=== PATIENT | male | born 1935 | race Caucasian/White ===

== ENCOUNTER 2018-01-11 07:11 | Inpatient (IN) | payer OTHER ==
[~2018-01-11] VITALS: Ht 175.3 cm; Wt 72.6 kg
--- NOTE | ~2018-01-11 | HC ---
[facility] [place] [address] CONSULTATION Name: NICOLE MIKE Room #: 421-P [facility] IN .R.#: [id number] Admission: 01/11/18 Attend Phys: Michel Schaeffer Discharge: 01/15/18 Date of : 31 Report #: [id number] THIS REPORT FOR: //name// CC: Michel Raglanden Jl DATE OF SERVICE: 01/11/2018 HISTORY OF PRESENT ILLNESS: This is an 82-year-old male patient who was evaluated by me for any neurological etiology for the patient's nausea, vomiting and dizziness. The history is not completely clear, but it would appear that this patient woke up with these symptoms. I talked to the patient's and other members of the family and after talking to them for some time, it is reasonably certain that he woke up with this symptom. His symptoms are some speech slurring and a lot of dizziness. His memory has not been affected. His symptoms are severe and he is keeping his eyes closed. He never had this kind of symptoms before. REVIEW OF SYSTEMS: He was recently admitted with a GI bleed. He used to be on Xarelto because of atrial fibrillation, but that was discontinued because of the GI bleed. The patient does have a prior coronary artery disease and he had a stent. He does have a prior history of atrial fibrillation. He had a history of shortness of breath in the past, but presently does not appear to be having much shortness of breath. I carried out the 14-point review of system and this was his relevant 14-point review of system. PAST MEDICAL HISTORY: Positive for coronary artery disease. FAMILY HISTORY: Negative for early age stroke. SOCIAL HISTORY: By record, he used to drink about a drink or 2 a day. He has multiple members here of the family and I talked to them. PHYSICAL EXAMINATION: NEUROLOGIC: Indicates he is alert. He is responsive. He is oriented. He is able to follow simple and complex command. He keeps his eyes closed. His speech to me, it looks it was preserved. His cranial nerve examination 212 was attempted. It would appear unremarkable. His neuromuscular examination is mostly positive for problem with the left shoulder, which is many decades old. Otherwise, strength, sensation, reflexes and tones are symmetrical. CARDIAC: Indicates that he has a history of atrial fibrillation. RESPIRATORY: He does not appear to be in any respiratory difficulty or any rhonchi on either side. VITAL SIGNS: His blood pressure is 140/74, respiration is 16, pulse is 65, temperature is 96.1. GENERAL: He is a very well-developed individual who does not have any [address] [address] CONSULTATION Name: NICOLE MIKE Room #: 421-P [facility] M.R.#: [id number] Admission: 01/11/18 Attend Phys: Michel Schaeffer Discharge: 01/15/18 Date of : 31 Report #: [id number] dysmorphic features of eyes, ears and face. His vision and hearing looks adequate. EXTREMITIES: His pulses are difficult to feel. He has no edema, cyanosis or jaundice. LABORATORY DATA: Indicates a hemoglobin of only 8.6, which is low. His GFR is only 41. His glucose is 218. His LDL is 61. He did have a CT scan of the head, which does not appear to be showing any acute changes. IMPRESSION: I had a long talk with the patient and the family. I discussed with them that neurologically, the main thing we need to exclude is the possibility of posterior fossa cerebrovascular accident. If it is, it will be in the cerebellar area. His CT is unremarkable, but that does not exclude the possibility of cerebrovascular accident. Unfortunately, the treatment option will be limited in this patient. He is obviously not a TPA candidate because of symptom onset is not clear and he had a gastrointestinal bleed recently. His symptom duration is more than 4-1/2 hours and 3 hours and with his age of more than 78, he is outside the window for that. Thrombectomy now can be done for up to 48 hours, but only in a selected individual. So I think it will be desirable to proceed with an MRI in this patient. I discussed with the family that because of his nausea, vomiting, the possibility of aspiration is there, especially in the machine. I also talked to them that he has metal in his teeth and that may produce a lot of artifact and MRI people need to decide if they want to proceed with that or not. The family understood the risks with MRI. I think this patient is competent to make the decision. He also listen to the discussion and they all agree to proceed with this and we will schedule that and if MRI shows a stroke, then we need to proceed accordingly. If that MRI is negative, then we need to be worked up for any alternate etiology for the patient's symptom. Stroke need to be excluded especially because his anticoagulation has to be discontinued recently with a gastrointestinal bleed. <ELECTRONICALLY SIGNED> By: Manuel Devi MD 01/15/182150 57 57 Manuel Devi MD /nt
--- NOTE | ~2018-01-11 | EKG ---
[address] [address] ELECTROCARDIOGRAM REPORT Name: NICOLE MIKE [id number] Admission: 01/11/18 Attend Phys: Discharge: Date of : 31 Report #: [id number] THIS REPORT FOR: //name// [facility] ED Test Date: 2018-01-11 Test Time: 07:41:05 Pat Name: NICOLE MIKE Department: Room: Gender: M Public Relations: dahlia : 1935 Requested By: Lazarus Keith Order Number: [id number] MD: Grzegorz Ortiz Measurements Intervals [place] Rate: 65 P: TN: QRS: 62 QRSD: 106 T: 29 QT: 472 QTc: 491 Interpretive Statements Atrial fibrillation Borderline prolonged QT interval Compared to ECG 12/29/2017 12:15:12 T-wave abnormality no longer present Electronically Signed On 01-11-2018 9:17:10 CDT by Grzegorz Ortiz [email or web address] <ELECTRONICALLY SIGNED> By: Grzegorz rOtiz MD 01/11/18 0917 0741 0741 Grzegorz Ortiz MD /EPI
[~2018-01-11 07:11] MED LIST: ANALGESIC325 MG PO; ASPIR 8181 MG PO; BYSTOLIC 5 MG5 MG PO; CENTRUM SILVER1 EAC2 PO; COLACE100 MG PO; DYAZIDE; EXFORGE; IRON325 PO; KRILL OIL500 MG PO; LASIX 20 MG TAB20 MG PO; LIPITOR 20 MG T20 M1 PO; LIPITOR40 MG PO; PANTOPRAZOLE SO40 M1 PO; PROBIOTIC1 EAC1 PO; QUESTRAN PACKET4 GM PO; XARELTO20 MG PO
[2018-01-11 07:14] VITALS: BP 144/70
[2018-01-11 07:52] LABS: ABSOLUTE NEUTROPHILS 4.7 thou/uL (1.4-8.2); BASOPHILS 1.4 % (0.0-2.0); EOSINOPHILS 3.5 % (0.0-3.0); HEMATOCRIT 25.5 % (42.0-52.0); HEMOGLOBIN 8.6 gm/dL (14.0-18.0); LYMPHOCYTES 24.5 % (24.0-44.0); MCH 30.3 pg (26.0-34.0); MCHC 33.9 g/dL (28.0-37.0); MCV 89.4 fL (80.0-100.0); MONOCYTES 10.1 % (1.0-8.0); PLATELET COUNT 297 thou/uL (150-400); POLYS 60.5 % (36.0-66.0); RBC 2.85 mil/uL (4.50-6.00); RDW 16.4 % (10.5-14.5); WBC 7.7 thou/uL (4.0-11.0)
[2018-01-11 08:05] LABS: APTT 21.4 Seconds (24.5-32.8); PROTIME 10.3 Seconds (9.3-11.4)
[2018-01-11 08:06] LABS: ANION GAP 11 mmol/L (7-16); BUN 22 mg/dL (7-18); CALCIUM 8.8 mg/dL (8.5-10.1); CHLORIDE 104 mmol/L (98-107); CO2 21 mmol/L (21-32); CREATININE 1.6 mg/dL (0.7-1.3); GLUCOSE 218 mg/dL (74-106); POTASSIUM 3.6 mmol/L (3.5-5.1); SODIUM 136 mmol/L (136-145)
[2018-01-11 08:14] LABS: ALBUMIN 3.5 g/dL (3.4-5.0); SGOT 23 U/L (15-37); SGPT 22 U/L (30-65); TOTAL BILIRUBIN 0.6 mg/dL (<0.1-1.0); TOTAL PROTEIN 6.2 g/dL (6.4-8.2); TROPONIN-I < 0.04 ng/mL (<0.06)
[2018-01-11 10:05] VITALS: BP 140/74
[2018-01-11 10:25] LABS: URINE BILIRUBIN NEGATIVE (Negative); URINE BLOOD NEGATIVE (Negative); URINE CLARITY CLEAR; URINE COLOR YELLOW; URINE GLUCOSE-RANDOM* TRACE (Negative); URINE KETONES 1+ (Negative); URINE LEUKOCYTES-REFLEX NEGATIVE (Negative); URINE NITRITE-REFLEX NEGATIVE (Negative); URINE PROTEIN (DIPSTICK) NEGATIVE (Negative); URINE SPECIFIC GRAVITY 1.025 (1.005-1.035); URINE UROBILINOGEN 0.2 E.U./dl (0.2-1.0)
[2018-01-11 10:42] VITALS: BP 140/77
[2018-01-11 10:42] LABS: CHOLESTEROL 120 mg/dL (<200); HDL CHOLESTEROL 48 mg/dL (>40); LDL CHOLESTEROL 61 mg/dL (<100); TC:HDL 2.5 Ratio (Not establshd); TRIGLYCERIDE 58 mg/dL (<150); VLDL 12 mg/dL (<40)
[2018-01-11 16:23] VITALS: BP 147/76
[2018-01-11 19:45] VITALS: BP 148/79
[2018-01-12 04:28] LABS: HEMATOCRIT 24.2 % (42.0-52.0); HEMOGLOBIN 7.9 gm/dL (14.0-18.0); MCHC 32.5 g/dL (28.0-37.0); MCV 89.2 fL (80.0-100.0); RBC 2.71 mil/uL (4.50-6.00); RDW 16.1 % (10.5-14.5); WBC 5.9 thou/uL (4.0-11.0)
[2018-01-12 04:47] LABS: ALBUMIN 3.1 g/dL (3.4-5.0); CALCIUM 8.2 mg/dL (8.5-10.1); CREATININE 1.3 mg/dL (0.7-1.3); PHOSPHORUS 3.4 mg/dL (2.5-4.9)
[2018-01-12 04:50] VITALS: BP 127/67
[2018-01-12 07:50] VITALS: BP 133/71
[2018-01-12 11:01] LABS: ABSOLUTE RETIC COUNT 0.076 10^6/uL; OBSERVED RETIC COUNT 2.88 % (0.6-2.6)
[2018-01-12 11:04] LABS: % SATURATION 5 % (20-39); IRON 15 ug/dL (65-175); TIBC 308 ug/dL (250-450)
[2018-01-12 11:32] LABS: TSH 0.503 uIU/mL (0.358-3.740)
[2018-01-12 11:45] VITALS: BP 140/76
[2018-01-12 15:45] VITALS: BP 130/65
[2018-01-12 19:30] VITALS: BP 128/61
[2018-01-13 04:20] VITALS: BP 105/59
[2018-01-13 04:40] VITALS: BP 122/62
[2018-01-13 04:50] LABS: HEMATOCRIT 21.1 % (42.0-52.0); HEMOGLOBIN 7.1 gm/dL (14.0-18.0); MCH 29.4 pg (26.0-34.0); MCHC 33.5 g/dL (28.0-37.0); MCV 87.7 fL (80.0-100.0); RBC 2.4 mil/uL (4.50-6.00); RDW 16.8 % (10.5-14.5); WBC 8.7 thou/uL (4.0-11.0)
[2018-01-13 07:00] VITALS: BP 131/77
[2018-01-13 11:49] VITALS: BP 133/68
[2018-01-13 20:00] VITALS: BP 142/78
[2018-01-14] VITALS (8 sets, daily range): BP systolic 130–170; BP diastolic 67–87
[2018-01-14 04:18] LABS: ABSOLUTE NEUTROPHILS 5.5 thou/uL (1.4-8.2); BASOPHILS 0.8 % (0.0-2.0); EOSINOPHILS 2.8 % (0.0-3.0); HEMATOCRIT 21.2 % (42.0-52.0); LYMPHOCYTES 15.8 % (24.0-44.0); MCH 29.2 pg (26.0-34.0); MCV 88.4 fL (80.0-100.0); MONOCYTES 8.2 % (1.0-8.0); PLATELET COUNT 239 thou/uL (150-400); POLYS 72.4 % (36.0-66.0); RBC 2.39 mil/uL (4.50-6.00); RDW 16.8 % (10.5-14.5); WBC 7.6 thou/uL (4.0-11.0)
[2018-01-14 04:30] LABS: CALCIUM 7.9 mg/dL (8.5-10.1); CREATININE 1.2 mg/dL (0.7-1.3); POTASSIUM 3.7 mmol/L (3.5-5.1)
[2018-01-15 03:30] VITALS: BP 156/84
[2018-01-15 04:16] LABS: ABSOLUTE NEUTROPHILS 4.8 thou/uL (1.4-8.2); BASOPHILS 0.8 % (0.0-2.0); EOSINOPHILS 4.6 % (0.0-3.0); HEMATOCRIT 24.4 % (42.0-52.0); HEMOGLOBIN 8.2 gm/dL (14.0-18.0); LYMPHOCYTES 18.8 % (24.0-44.0); MCH 28.8 pg (26.0-34.0); MCHC 33.6 g/dL (28.0-37.0); MCV 85.6 fL (80.0-100.0); MONOCYTES 8.9 % (1.0-8.0); PLATELET COUNT 237 thou/uL (150-400); POLYS 66.9 % (36.0-66.0); RBC 2.85 mil/uL (4.50-6.00); WBC 7.2 thou/uL (4.0-11.0)
[2018-01-15 04:28] LABS: CALCIUM 8.4 mg/dL (8.5-10.1); CREATININE 1.2 mg/dL (0.7-1.3); POTASSIUM 3.7 mmol/L (3.5-5.1)
[2018-01-15 07:19] VITALS: BP 155/85
[2018-01-15] MEDS ORDERED: XARELTO15 MG PO (16:04)
[2018-01-15] MEDS ORDERED: MIRALAX17 GM PO (16:04)
[2018-01-15] MEDS ORDERED: COLACE100 MG PO (16:04)
[2018-01-15] MEDS ORDERED: VITAMIN B-12500 MCG PO (16:04)
[2018-01-15] MEDS ORDERED: ANTIVERT25 MG PO (16:04)
[2018-01-15] MEDS ORDERED: ASPIR 8181 MG PO (16:04)
[2018-01-15] MEDS ORDERED: IRON325 PO (16:14)
[2018-01-15 16:48] VITALS: BP 155/85
== END 2018-01-15 17:39 | disposition home or self-care (01) | DRG 69 ==
LOC: ER 07:11 → 4E 09:47 → EROBS 09:47 → 3W 10:48 → 4E 01-13 15:06
PROVIDERS: Emergency Medicine; Family Medicine; Hospitalist
PROC: 30233N1 Transfusion of Nonautologous Red Blood Cells into Peripheral Vein, Percutaneous Approach (ICD-10-PCS; principal; 2018-01-14)
DX: G45.9 Transient cerebral ischemic attack, unspecified (principal); N17.0 Acute kidney failure with tubular necrosis; I10 Essential (primary) hypertension; E78.00 Pure hypercholesterolemia, unspecified; I25.10 Atherosclerotic heart disease of native coronary artery without angina pectoris; D50.0 Iron deficiency anemia secondary to blood loss (chronic); K57.90 Diverticulosis of intestine, part unspecified, without perforation or abscess without bleeding; K80.20 Calculus of gallbladder without cholecystitis without obstruction; I48.91 Unspecified atrial fibrillation; Z96.642 Presence of left artificial hip joint; I25.2 Old myocardial infarction; Z95.5 Presence of coronary angioplasty implant and graft; Z87.891 Personal history of nicotine dependence; Z98.42 Cataract extraction status, left eye; Z79.899 Other long term (current) drug therapy; Z88.5 Allergy status to narcotic agent
CPT/HCPCS: 10183; 10879

== ENCOUNTER → 2020-07-28 | Outpatient (CLI) | payer OTHER ==
[~2020-07-28] MED LIST changes: +ANTIVERT25 MG PO; +MIRALAX17 GM PO; +VITAMIN B-12500 MCG PO; +XARELTO15 MG PO
== END ==
LOC: SJCVCIMAG 07:11
PROVIDERS: ATTEND Internal Medicine Cardiovascular Disease
DX: I08.3 Combined rheumatic disorders of mitral, aortic and tricuspid valves (principal); I11.9 Hypertensive heart disease without heart failure; R94.31 Abnormal electrocardiogram [ECG] [EKG]; I48.91 Unspecified atrial fibrillation; E78.00 Pure hypercholesterolemia, unspecified; Z79.899 Other long term (current) drug therapy; Z87.891 Personal history of nicotine dependence

== ENCOUNTER → 2020-09-16 | Outpatient (CLI) | payer OTHER | LOC: RAD 11:44 | PROVIDERS: ATTEND Internal Medicine | DX: J90 Pleural effusion, not elsewhere classified (principal) ==

== ENCOUNTER → 2020-09-20 | Outpatient (CLI) | payer OTHER ==
[2020-09-20 09:27] LABS: ABSOLUTE NEUTROPHILS 11.2 thou/uL (1.4-8.2); BASOPHILS 0.4 % (0.0-2.0); EOSINOPHILS 0.7 % (0.0-3.0); HEMATOCRIT 35.5 % (42.0-52.0); HEMOGLOBIN 11.7 gm/dL (14.0-18.0); LYMPHOCYTES 7.4 % (24.0-44.0); MCH 26.9 pg (26.0-34.0); MCHC 32.8 g/dL (28.0-37.0); MONOCYTES 9.8 % (1.0-8.0); PLATELET COUNT 408 thou/uL (150-400); POLYS 81.7 % (36.0-66.0); RBC 4.33 mil/uL (4.50-6.00); RDW 18.9 % (10.5-14.5); WBC 13.7 thou/uL (4.0-11.0)
[2020-09-20 09:36] LABS: APTT 29.9 Seconds (24.5-32.8); INR 1.1; PROTIME 11.2 Seconds (9.3-11.4)
[2020-09-20 09:51] LABS: CREATININE 1.1 mg/dL (0.7-1.3); POTASSIUM 3.4 mmol/L (3.5-5.1)
[2020-09-20 11:43] LABS: CLARITY CLEAR; COLOR YELLOW; SOURCE CHEST FLUID; TOTAL VOLUME 60 mL
[2020-09-20 12:50] LABS: BF NUCLEATED CELLS 260 /mm3; BF RBC 644 /mm3
[2020-09-20 14:29] LABS: ANISOCYTOSIS 2+
[2020-09-20 14:30] LABS: OVALOCYTES FEW; POLYCHROMASIA OCCASIONAL
[2020-09-20 14:41] LABS: BF MACROPHAGE 74 %; BF NEUTROPHILS 4 %
[2020-09-21 10:37] LABS: SOURCE CHEST
[2020-09-21 12:07] LABS: BODY FLUID ALBUMIN 1.5 g/dL (Not Estab.); BODY FLUID AMYLASE 26 U/L (()); BODY FLUID GLUCOSE 165 mg/dL (()); BODY FLUID LDH 162 IU/L (()); BODY FLUID PROTEIN 2.8 g/dL (())
--- NOTE | 2020-09-22 11:07 | PATH ---
[facility] [place] [address] PATHOLOGY RPT PROCEDURE Name: NICOLE MIKE Room #: REG CATHERINE Monahan.Lyndon.#: [id number] Admission: 09/20/20 Date of : 31 Discharge: Report #: [id number] Path Case #: [id number] Note [facility] Accession Number: [id number] TESTS RESULT FLAG UNITS REF RANGE LAB Clinician Provided Cytology Information No. of containers..01 Other (Miscellaneous) Source: RIGHT PLEURAL FLUID DIAGNOSIS: 02 RIGHT PLEURAL FLUID NEGATIVE FOR MALIGNANT EPITHELIAL CELLS. REACTIVE MESOTHELIAL CELLS ARE PRESENT. THIS INTERPRETATION INCLUDES EVALUATION OF A CELL BLOCK. CHRONIC INFLAMMATION AND MACROPHAGES. Comment: Few enlarged mildly atypical cells are identified in a background of inflammation and macrophages. Properly controlled immunohistochemical stains are performed on formalin fixed cell block. Calretinin and desmin are reactive within the mesothelial cells. CD45 is reactive within the inflammatory cells. CD68 is reactive within the scattered macrophages. BerEP4 is nonreactive. Findings support a reactive process. Pathologist ICD10: 02 J90 Signed out by: 02 Peggy Riojas MD, Pathologist NPI- [id number] Performed by: 01 Marybeth Gruber, Firer Kiln ([facility]) Gross description: 01 10ML, HAZY YELLOW, 1 TP 1 CB /LCS 09/20/2020 1654 Local FLAG LEGEND: L-Low Normal,H-High Normal,LL-Alert Low,HH-Alert High <-Panic Low,>-Panic High,A-Abnormal,AA-Critical Abnormal Performed at: 01 [facility] [address] [facility] [address] [place] [address] Jac Coelho MD, [address] [address] Peggy Riojas MD, Specimen Comment: A courtesy copy of this report has been sent to [phone], [phone] [address] PATHOLOGY RPT PROCEDURE Name: CEENICOLE YASSINE Room #: REG CATHERINE Cotter#: [id number] Admission: 09/20/20 Date of : 31 Discharge: Report #: [id number] Path Case #: [id number] Specimen Comment: [phone] Specimen Comment: Report sent to / DR BAKER Performed at: 01 [facility] [address] [place] [address] [address], [place], [place] [id number] MD Jac Coelho MD Phone: [phone]
== END ==
LOC: ULTRA 08:48
PROVIDERS: ATTEND Internal Medicine
DX: J90 Pleural effusion, not elsewhere classified (principal); R91.8 Other nonspecific abnormal finding of lung field; R59.9 Enlarged lymph nodes, unspecified; Z79.899 Other long term (current) drug therapy; Z98.890 Other specified postprocedural states

== ENCOUNTER → 2020-09-27 | Outpatient (CLI) | payer OTHER | LOC: RAD 12:30 | PROVIDERS: ATTEND Internal Medicine | DX: J90 Pleural effusion, not elsewhere classified (principal) ==

== ENCOUNTER → 2020-10-04 | Outpatient (CLI) | payer OTHER ==
[~2020-10-04] MED LIST changes: +BYSTOLIC10 MG PO; +DILTIAZEM ER180 M2 PO; +HYDROCODON-ACE1 EAC7 PO; +LIPITOR10 MG PO; +PROTONIX40 M2 PO; +VITAMIN B-125000 MCG PO
== END ==
LOC: LAB 12:32
PROVIDERS: ATTEND Pediatrics
DX: Z01.812 Encounter for preprocedural laboratory examination (principal); Z20.822 Contact with and (suspected) exposure to COVID-19

== ENCOUNTER → 2020-10-06 | Outpatient (CLI) | payer OTHER | LOC: CAT 11:04 | PROVIDERS: ATTEND Internal Medicine | DX: R91.8 Other nonspecific abnormal finding of lung field (principal); J90 Pleural effusion, not elsewhere classified ==

== ENCOUNTER 2020-10-07 06:22 | Inpatient (IN) | payer OTHER ==
[~2020-10-07] VITALS: Ht 175.3 cm; Wt 58.3 kg
[2020-10-07 07:34] VITALS: BP 139/67
[2020-10-07 07:51] VITALS: BP 139/67
--- NOTE | 2020-10-07 13:43 | NUR ---
PT ARRIVED TO UNIT FROM IR AT APPROX 1220. PT DROWSY, ORIENTED. VSS. O2 SATS WNL 2L. CHEST TUBE IN PLACE TO -20 SUCTION. PT IN NO RESP DISTRESS. SPOUSE AT BEDSIDE, SPOUSE HAS ALZHEIMERS, DAUGHTER PRESENT AND VERY INVOLVED WITH CARE. ADMISSION COMPLETE. TELE STRIP PRINTED AND CHARTED. PT CURRENTLY RESTING IN BED. DENIES NEEDS. WILL CONT TO MONITOR AND FOLLOW POC.
[2020-10-07 14:13] LABS: ABSOLUTE NEUTROPHILS 10.9 thou/uL (1.4-8.2); BASOPHILS 0.2 % (0.0-2.0); EOSINOPHILS 0.2 % (0.0-3.0); HEMATOCRIT 35.3 % (42.0-52.0); HEMOGLOBIN 11.2 gm/dL (14.0-18.0); LYMPHOCYTES 4.3 % (24.0-44.0); MCH 26.2 pg (26.0-34.0); MCHC 31.8 g/dL (28.0-37.0); MCV 82.2 fL (80.0-100.0); MONOCYTES 1.9 % (1.0-8.0); PLATELET COUNT 428 thou/uL (150-400); POLYS 93.4 % (36.0-66.0); WBC 11.7 thou/uL (4.0-11.0)
[2020-10-07 14:28] LABS: CALCIUM 8.4 mg/dL (8.5-10.1); MAGNESIUM 1.4 mg/dL (1.8-2.4); POTASSIUM 4.1 mmol/L (3.5-5.1)
[2020-10-07 19:24] VITALS: BP 119/59
--- NOTE | 2020-10-07 22:17 | NUR ---
Zaina SPOKE WITH DAUGHTER RADHA FOR 10 MINUTES.
[2020-10-07 23:14] VITALS: BP 119/80
[2020-10-08 03:44] VITALS: BP 135/78
--- NOTE | 2020-10-08 04:15 | NUR ---
RESTED QUIETLY MOST OF SHIFT. HAD A HARD TIME GETTING COMFORTABLE LAST NOC. ASSIST TO REPOSITION NEEDED. PATIENT CAN MOVE AROUND IN BED BY SELF. WORKING ON GOALS AND PLAN OF CARE FOR NOC. PROGRESSING TOWARDS DISCHARGE GOALS SLOWLY. CHEST TUBE RIGHT LATERAL SIDE REMAINS TO -20 SUCTION. DENIES COMPLAINTS OF SHORTNESS OF AIR OR PAIN. CONTINUE TO ASSES CLOSELY.
[2020-10-08 07:30] VITALS: BP 134/76
[2020-10-08 11:30] VITALS: BP 117/70
--- NOTE | 2020-10-08 15:37 | NUR ---
met with patient and at bedside. Patient admits with lung mass and has chest tube. Patient resides at home in independent home with all needs on one level. He has steps to enter home. Has a walker at home but does not use. He reports independent with adls and self care. Hoping to dc this weekend. He is open to home health and no preference for home health agency. Patient cont to drive. has some dementia. Dtr from out of town is staying with patient in home. PCP Dr Hidalgo. Verified address.
[2020-10-08 16:00] VITALS: BP 119/57
--- NOTE | 2020-10-08 16:34 | NUR ---
FAXED REFERRAL TO [facility]. CONFIRMED WITH MARIIA/MENG THAT THEY CAN ACCEPT PATIENT WHEN DISCHARGED. DISCHARGE ORDERS/SUMMARY, CLINICAL AND THERAPY NOTES FAXED AND RECEIVED AT [facility]. [facility] P [phone]; FAX [phone]
[2020-10-08 16:37] VITALS: BP 119/57
--- NOTE | 2020-10-08 16:39 | NUR ---
If patient to discharge over weekend [facility] home health is accepting. If discharged and home health accepting. Call [phone] home health and alert of discharge. fax orders
--- NOTE | 2020-10-08 19:49 | NUR ---
RECEIVED PT'S CARE AROUND AROUND 0720; PT. ON BED; ALERT; DURING AM ASSESSMENT PT. AOX4; NO C/O PAIN DURING BED REST; C/O PAIN WHEN UP WORKING WITH OT; PRN PAIN MEDICATION GIVEN WITH AM MEDICATIONS; RECEIVED CALL FROM DAUGHTER CLOSE TO 0800; EDUCATED ABOUT SHIFT CHANGED; ST. "SHIFT CHANGE AT 0800 THAT'S ODD"; INSTRUCTED HEBREW CANTOR WILL RETURN CALL BACK; DAUGHTER AT THE BED SIDE AROUND 0900; UPDATED ABOUT POC; ST. "YESTERDAY" THE "NURSE LET HER WAIT ON THE WAITING ROOM WHILE HER MOTHER WAS IN THE ROOM"; EDUCATED ABOUT VISITOR POLICY; "ST. "DAD IT LOOKS LIKE YESTERDAY YOUR STAFF WAS MORE EMPATHETIC"; HEBREW CANTOR CALL COLLECTIONS OFFICER; COLLECTIONS OFFICER NOTIFIED; MANUELA NURSE AT THE BED SIDE EXPLAINED VISITOR POLICY; PER REPORT CONTACTED PT'S DAUGHTER AND EXPLAINED POLICY; DESIGNATOR VISITOR PT'S ; UPDATED ON THE SYSTEM; HR ABOVE 100s AFTER EXERTION; PHYSICIAN NOTIFIED; NO NEW ORDERS; MONITORING; PT. EDUCATED ABOUT BLOOD SUGAR AND INSULIN; ST. UNDERSTANDING; DURING THE AFTERNOON PT'S DAUGHTER UPDATED ABOUT PT'S HEALTH STATUS; ST. UNDERSTANDING; ABLE TO VOID 250 ML PLUS ONE TIME NO MEASURE; BLADDER SCANN SHOWED 65 ML; PASSED ON REPORT; ASSESSMENT CHARGED; FOLLOWING POC; PASSED ON REPORT;
[2020-10-08 19:57] VITALS: BP 118/55
[2020-10-09 03:22] LABS: ABSOLUTE NEUTROPHILS 12.3 thou/uL (1.4-8.2); BASOPHILS 0.3 % (0.0-2.0); EOSINOPHILS 0.3 % (0.0-3.0); HEMATOCRIT 36.5 % (42.0-52.0); HEMOGLOBIN 11.3 gm/dL (14.0-18.0); LYMPHOCYTES 6.6 % (24.0-44.0); MCH 25.8 pg (26.0-34.0); MCHC 31.1 g/dL (28.0-37.0); MCV 82.8 fL (80.0-100.0); MONOCYTES 7.7 % (1.0-8.0); PLATELET COUNT 427 thou/uL (150-400); POLYS 85.1 % (36.0-66.0); RDW 19.1 % (10.5-14.5); WBC 14.4 thou/uL (4.0-11.0)
[2020-10-09 03:26] LABS: CALCIUM 8.7 mg/dL (8.5-10.1); CREATININE 1.2 mg/dL (0.7-1.3); MAGNESIUM 1.7 mg/dL (1.8-2.4); POTASSIUM 4.8 mmol/L (3.5-5.1)
[2020-10-09 03:38] VITALS: BP 134/79
--- NOTE | 2020-10-09 03:38 | NUR ---
Assumed pt care at 1900. Pt is alert and oriented. No sign of distress noted in pt. Denies any pain. Chest tube in place. Fall precaution in place. Assessment completed and documented. Scheduled meds administered to pt. Pt is stable through the night with intermittent confusion noted. Pt was easily re-oriented and went back to sleep. Continue to monitor. No further needs at this time.
[2020-10-09 07:10] VITALS: BP 141/81
[2020-10-09 11:05] VITALS: BP 120/68
--- NOTE | 2020-10-09 12:29 | NUR ---
RECEIVED CALL FROM DELVIN NUÑEZ THAT PT HAS DECLINED AND [facility] SHE HAD ALREADY SPOKEN WITH THEM AND PHYSICIANS ALL ARE IN AGREEMENT WITH DC PLAN HOME WITH [facility]. FAXED REFERRAL SPOKE WITH MICHELLE IN INTAKE SHE RECEIVED AND WILL ARRANGE DME AND NURSE TO MEET WITH PT. SPOKE WITH SAVANNAH HARGROVE SHE SAID PT'S DTR (RADHA) WILL TRANSPORT PT HOME I SPOKE WITH RADHA SHE SAID SHE IS FINE WITH TRANSPORT BUT I REASSURED HER THAT IS SHE FEELS SHE CANNOT GET PT INTO HOME SAFELY THE NURSE CAN ARRANGE AMBULANCE TRANSPORT. DC ORDERS NOT READY YET NEED TO BE CHANGED TO HOME WITH HOSPICE NURSE TO NOTIFY DR. REYNOLDS. FAX DC ORDERS/SUMMARY TO [phone] CALL [phone].
--- NOTE | 2020-10-09 13:22 | NUR ---
RECEIVED PT'S CARE AROUND 0710; PT. ON BED; ALERT; DURING AM ASSESSMENT AOX4; FORGETFUL; IRRITABLE; UPSET; ST. HE WANTS TO GO HOME; ST. "THE ONLY THING YOU DO IS TO GIVE ME PILLS"; EDUCATED ABOUT THE IMPORTANCE OF STAYING IN THE HOSPITAL DUE CT; NO ANSWER BACK; CALLED DAUGHTER; UPDATED ABOUT POC AND PT'S FRUSTRATION; ST. UNDERSTANDING; ST. BEING AFRAID DUE TO PT CONFUSION DURING NIGHT; EDUCATED ABOUT SUN DOWN AND MOOD SWINGS ON OLDER ADULTS DURING STAY DURING HOSPITAL STAY; ST. UNDERSTANDING; REQUESTED TO TALK WITH PHYSICIANS; PHYSICIANS NOTIFIED; DR. REYNOLDS CALL DAUGTHER DURING ROUNDING; PER DR. REYNOLDS DAUGHTER REQUESTED HOSPICE; ORDERS ON PLACED; DR. MEDEIROS NOTIIFED; DURING ROUNDING DR. MEDEIROS D/C CT; RING PACKER NOTIFIED; INFORMATION GIVEN; HOSPICE NURSE CALL; NOTIFIED; ST. UNDERSTANDING; DAUGHTER NOTIFIED ABOUT D/C ORDERS; ST. UNDERSTANDING; SET UP D/C FOR 1400; AFIB ON THE MONITOR; ASSESSMENT CHARGED; FOLLOWING POC; WILL WORK ON D/C ORDERS;
[2020-10-09 14:01] VITALS: BP 119/57
--- NOTE | 2020-10-11 19:06 | PATH ---
[facility] [place] [address] PATHOLOGY RPT PROCEDURE Name: NICOLE MIKE Room #: 203-P DIS IN M.R.#: [id number] Admission: 10/08/20 Date of : 31 Discharge: 10/09/20 Report #: [id number] Path Case #: [id number] [facility] Accession Number: [id number] . 01 Material submitted: . lung - LUNG, RIGHT UPPER LOBE, BIOPSY FORCEPS. Modifiers: right, upper . 01 Clinical history: . LUNG MASS . 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 - Abundant strips and fragments of benign bronchial epithelium with no evidence of dysplasia. . (IUV:mml; 10/11/2020) QLM 10/11/2020 1637 Local . 02 Comment: Single atypical fragment with elongated nuclei as well as degenerative changes is identified adjacent to fibrinoid degeneration and apoptosis. Definitive nuclear features or mitotic figures are not identified due to the degenerative changes. The background sample shows strips and fragments of benign bronchial epithelium with reactive changes. Properly-controlled immunohistochemical stains are performed on block A1 and show reactivity with Vimentin within the cells of interest; the fragment is non-reactive to Desmin, p63, TTF-1 as well as AE1/AE3. The immunohistochemical stains are inconclusive and this is likely due to the degenerative changes within the fragment. It is likely that this fragment represents tumor; however, lack of reactive immunohistochemical stains precludes a definitive interpretation. . Dr. Vania Lara has seen this case and agrees with my interpretation. (IUV:mml; 10/11/2020) . 02 Electronically signed: . Peggy Riojas MD, Pathologist NPI- [id number] . 01 Gross description: . The specimen is received in formalin, labeled "JAMAL Lu". Received are several minute fragments of pale greenfield soft tissue measuring 0.3 x 0.2 x 0.1 cm in aggregate dimensions. The specimen is filtered and entirely submitted in cassette A1. [address] [address] PATHOLOGY RPT PROCEDURE Name: NICOLE MIKE Room #: 203-P DIS IN M.R.#: [id number] Admission: 10/08/20 Date of : 31 Discharge: 10/09/20 Report #: [id number] Path Case #: [id number] (CAA; 10/07/2020) QAC/QAC 10/07/2020 1714 Local . 02 Pathologist provided ICD-10: J98.4, J85.0 . 02 CPT . 877474, X03303, L69918 Specimen Comment: A courtesy copy of this report has been sent to [phone] Specimen Comment: [phone] Specimen Comment: Report sent to / DR BAKER Performed at: [address], [place] [id number] MD Jac Coelho MD Phone: [phone] Performed at: [address] [id number] MD Peggy Riojas MD Phone: [phone]
--- NOTE | 2020-10-12 08:44 | PATH ---
[facility] [place] [address] [place] [address] PATHOLOGY RPT PROCEDURE Name: NICOLE MIKE Room #: 203-P DIS IN M.R.#: [id number] Admission: 10/08/20 Date of : 31 Discharge: 10/09/20 Report #: [id number] Path Case #: [id number] Note [facility] Accession Number: [id number] TESTS RESULT FLAG UNITS REF RANGE LAB Clinician Provided Cytology Information No. of containers..01 Other (Miscellaneous) Source: RUL BRUSHING DIAGNOSIS: RUL BRUSHING INCONCLUSIVE. SCANT CELLULARITY. SPECIMEN CONSISTS OF BLOOD. THIS INTERPRETATION INCLUDES EVALUATION OF A CELL BLOCK. SCANT TO RARE GROUPS OF ATYPICAL CELLS. Comment: Scattered rare groups of atypical cells with scant cytoplasm are present. Moulded nuclei are identified. The specimen is scantly cellular and is predominantly comprised of blood. The concurrent biopsy showed a single atypical fragment with necrosis ([id number]). Immunohistochemical stains were attempted on the fragment; however, showed no definite reactivity and the stains were inconclusive. The RUL TBNA, [id number] showed neoplastic cells and is pending further studies at the time of this report. Please refer to separate reports for details. Pathologist ICD10: 02 R91.8 Signed out by: 02 Peggy Riojas MD, Pathologist NPI- [id number] Performed by: Meron Lewis, Global Coordinator ([facility]) Gross description: 01 16ML, RED, 1TP 1CB /LCS 10/08/2020 0712 Local FLAG LEGEND: L-Low Normal,H-High Normal,LL-Alert Low,HH-Alert High <-Panic Low,>-Panic High,A-Abnormal,AA-Critical Abnormal Performed at: [place] [facility] [address] [place] [address] [address] [place] [address] Jac Coelho MD, 02 [facility] [address] [address] [facility] [address] [place] [address] PATHOLOGY RPT PROCEDURE Name: NICOLE MIKE Room #: 203-P DIS IN M.R.#: [id number] Admission: 10/08/20 Date of : 31 Discharge: 10/09/20 Report #: [id number] Path Case #: [id number] Peggy Riojas MD, Specimen Comment: A courtesy copy of this report has been sent to [phone] Specimen Comment: [phone] Specimen Comment: Report sent to / DR MYERS Performed at: 01 [facility] [address] [facility] [address], [place], [place] [id number] MD Jac Coelho MD Phone: [phone]
--- NOTE | 2020-10-12 08:44 | PATH ---
[facility] [address] [place] [address] PATHOLOGY RPT PROCEDURE Name: NICOLE MIKE Room #: 203-P DIS IN M.R.#: [id number] Admission: 10/08/20 Date of : 31 Discharge: 10/09/20 Report #: [id number] Path Case #: [id number] Note [facility] Accession Number: [id number] TESTS RESULT FLAG UNITS REF RANGE LAB Clinician Provided Cytology Information No. of containers..01 Other (Miscellaneous) Source: RUL BAL DIAGNOSIS: RUL BAL INCONCLUSIVE. REACTIVE BRONCHIAL CELLS ARE PRESENT. THIS INTERPRETATION INCLUDES EVALUATION OF A CELL BLOCK. SCANT TO RARE ATYPICAL CELLS WITH NUCLEAR MOULDING. Comment: Scant to rare single atypical cells are identified with nuclear moulding. Their scant nature limits a definite interpretation. Pathologist ICD10: 02 R91.8 Signed out by: Julio Riojas MD, Pathologist NPI- [id number] Performed by: Peter Lewis, Wellness Instructor ([facility]) Gross description: 01 15 ML, RED, 1TP 1CB /LCS 10/08/2020 0715 Local FLAG LEGEND: L-Low Normal,H-High Normal,LL-Alert Low,HH-Alert High <-Panic Low,>-Panic High,A-Abnormal,AA-Critical Abnormal Performed at: 01 [facility] [address] [facility] [address] [place] [address] Jac Coelho MD, [address] [address] Peggy Riojas MD, Specimen Comment: A courtesy copy of this report has been sent to [phone] Specimen Comment: [phone] Specimen Comment: Report sent to / DR MYERS Performed at: 01 [facility] [address] [place] [address] PATHOLOGY RPT PROCEDURE Name: NICOLE MIKE Room #: 203-P DIS IN M.R.#: [id number] Admission: 10/08/20 Date of : 31 Discharge: 10/09/20 Report #: [id number] Path Case #: [id number] [address] [facility] [address], [place], [place] [id number] MD Jac Coelho MD Phone: [phone]
--- NOTE | 2020-10-13 16:06 | PATH ---
[facility] [place] [address] PATHOLOGY RPT PROCEDURE Name: NICOLE MIKE Room #: 203-P DIS IN M.R.#: [id number] Admission: 10/08/20 Date of : 31 Discharge: 10/09/20 Report #: [id number] Path Case #: [id number] Note [facility] Accession Number: [id number] TESTS RESULT FLAG UNITS REF RANGE LAB Clinician Provided Cytology Information No. of containers..01 Other (Miscellaneous) Source: [A] 01 RUL FNA DIAGNOSIS: [A] 02 RUL TBNA/ FNA BIOPSY POSITIVE FOR MALIGNANT CELLS. THIS INTERPRETATION INCLUDES EVALUATION OF A CELL BLOCK. POORLY DIFFERENTIATED MALIGNANT NEOPLASM, SEE COMMENT. Comment: Examinations shows a high grade neoplasm with marked pleomorphism and large nuclei. Nucleoli or cytoplasmic borders are not evident. Properly controlled immunohsitochemical stains are performed and the lesion shows reactivity with CD56 only. Remaining immunohistochemical stains are non-reactive and included AE1/AE3, TTF1, Synaptophysin, Chromogranin, p63 and CD45. Based on the reactive marker this lesion may either represent a high grade poolry differentiated small cell carcinoma (showing no reacitivity with TTF1, AE1/AE3, synaptophysin and chromogranin) or a sarcoma with CD56 reactivity. Lack of reactivity is likely due to the poorly differentiated nature of the neoplasm. Additional stains are ordered and those will be reported in an addendum to follow. The lesion sampled is large (10 cm) and therefore the sample may not be entirely district sales representative. Clinical correlation is required. [place]: Dr. Brady Denton and Dr. Jac Coelho Findings were discussed with Dr. Ulysses Bonilla at [facility] 2 pm on 10/12/20. Pathologist ICD10: 02 C34.91 Addendum: 02 This addendum is issued subsequent to reviewing additional properly controlled immunohistochemical stains performed on the cell block of this case. The immunohistochemical stains are interpreted as follows: CD99 - Weak membranous reactivity present DESMIN - Less than 1% reactivity present S100 - Non-reactive MART-1/Melanin A - Non-reactive . The additional immunohistochemical stains are suggestive of a poorly differentiated/high-grade sarcomatoid neoplasm. 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 The non-reactive immunohistochemical stains argue against a melanoma or a malignant peripheral nerve sheath tumor. (IUV:pit 10/13/2020) . Professional services performed by [facility] at [facility], [address] [place], [place] [address], [place] [address]. Technical services performed by [facility] at [address] [place] [address], [address], [place] [address]. [facility]/10/13/2020 Addendum Electronically Signed by Peggy Riojas MD, Pathologist Signed out by: Peggy Riojas MD, Pathologist NPI- [id number] Performed by: Marybeth Gruber, Jazz Musician ([facility]) Gross description: 01 20ML, RED, 1CB /LCS 10/08/2020 0910 Local FLAG LEGEND: L-Low Normal,H-High Normal,LL-Alert Low,HH-Alert High <-Panic Low,>-Panic High,A-Abnormal,AA-Critical Abnormal Performed at: [address] [place] [address] Jac Coelho MD, 02 [facility] [address] [facility], [place] [address] Peggy Riojas MD, Specimen Comment: A courtesy copy of this report has been sent to [phone], [phone] Specimen Comment: [id number] Specimen Comment: Report sent to / DR BAKER Performed at: [address], [place], [place] [id number] MD Jac Coelho MD Phone: [phone]
== END 2020-10-09 14:21 | disposition hospice, home (50) | DRG 166 ==
LOC: PUL 06:22 → 2N 12:29 → PUL 15:49 → 2N 10-08 11:33
PROVIDERS: Nurse Practitioner; ADMIT Internal Medicine; ATTEND Pediatrics
PROC: 0W9930Z Drainage of Right Pleural Cavity with Drainage Device, Percutaneous Approach (ICD-10-PCS; principal; 2020-10-07)
PROC: 0BDC8ZX Extraction of Right Upper Lung Lobe, Via Natural or Artificial Opening Endoscopic, Diagnostic (ICD-10-PCS; principal; 2020-10-07)
PROC: 0B9C8ZX Drainage of Right Upper Lung Lobe, Via Natural or Artificial Opening Endoscopic, Diagnostic (ICD-10-PCS; principal; 2020-10-07)
PROC: 0BBC8ZX Excision of Right Upper Lung Lobe, Via Natural or Artificial Opening Endoscopic, Diagnostic (ICD-10-PCS; principal; 2020-10-07)
DX: J93.83 Other pneumothorax (principal); J96.21 Acute and chronic respiratory failure with hypoxia; E43 Unspecified severe protein-calorie malnutrition; J91.8 Pleural effusion in other conditions classified elsewhere; C34.11 Malignant neoplasm of upper lobe, right bronchus or lung; I48.91 Unspecified atrial fibrillation; I25.10 Atherosclerotic heart disease of native coronary artery without angina pectoris; I10 Essential (primary) hypertension; E78.00 Pure hypercholesterolemia, unspecified; E11.9 Type 2 diabetes mellitus without complications; K21.9 Gastro-esophageal reflux disease without esophagitis; Z96.642 Presence of left artificial hip joint; K57.90 Diverticulosis of intestine, part unspecified, without perforation or abscess without bleeding; E78.5 Hyperlipidemia, unspecified; J44.9 Chronic obstructive pulmonary disease, unspecified; J45.909 Unspecified asthma, uncomplicated; I65.29 Occlusion and stenosis of unspecified carotid artery; Z98.49 Cataract extraction status, unspecified eye; Z95.5 Presence of coronary angioplasty implant and graft; Z88.2 Allergy status to sulfonamides; I25.2 Old myocardial infarction; Z98.42 Cataract extraction status, left eye; Z87.891 Personal history of nicotine dependence
CPT/HCPCS: 10081; 10797; 50010; 62110; 62900